=== PATIENT | male | born 1965 | race Caucasian/White ===

== ENCOUNTER 2016-07-26 13:28 | Emergency (ER) | payer OTHER | END 2016-07-26 14:21 | disposition left against medical advice (07) | DX: K08.89 Other specified disorders of teeth and supporting structures (principal); Z53.21 Procedure and treatment not carried out due to patient leaving prior to being seen by health care provider ==

== ENCOUNTER 2016-09-15 11:03 | Emergency (ER) | payer OTHER ==
[2016-09-15 11:10] VITALS: BP 152/100
[2016-09-15] MEDS ORDERED: HYDROcod/ACETAM 5/325 MG TABLET PO STA (12:11)
[2016-09-15] MEDS ORDERED: CLINDAMYCIN 150 MG CAPSULE PO STA (12:11)
--- NOTE | 2016-09-15 12:14 | ED Physician Documentation ---
PD HPI HEENT - Stated complaint Stated Complaint: TOOTH PX - Chief complaint Chief Complaint: Heent - History obtained from History obtained from: Patient - History of Present Illness Timing - onset: Other (Ongoing dental pain from a left mandibular molar over the last couple of days developed palpable abscess on the gum line which stopped on its own this morning. He denies any fevers. He has appointment with the dentist in approximately 10 days.) Review of Systems Constitutional: denies: Fever, Chills, Myalgias Nose: denies: Rhinorrhea / runny nose, Congestion Throat: reports: Dental pain / toothache. denies: Oral lesions / sores Cardiac: denies: Chest pain / pressure, Palpitations PD PAST MEDICAL HISTORY - Past Medical History Cardiovascular: Hypertension Respiratory: None Neuro: None Endocrine/Autoimmune: None GI: None : None HEENT: None Psych: None Musculoskeletal: Gout Derm: None - Past Surgical History Past Surgical History: Yes - Present Medications Home Medications: Ambulatory Orders Medication Instructions Recorded Confirmed Lisinopril 10 mg PO DAILY 05/06/15 09/15/16 Clindamycin [Cleocin] 300 mg PO Q6H 10 Days 09/15/16 HYDROcod/ACETAM 5/325 [Kimberly 5/325] 1 - 2 ea PO Q6H PRN #15 tablet 09/15/16 - Allergies Allergies/Adverse Reactions: Allergies Allergy/AdvReac Type Severity Reaction Status Date / Time No Known Drug Allergies Allergy Verified 10/14/15 03:44 - Social History Does the pt smoke?: Yes Smoking Status: Current every day smoker Does the pt drink ETOH?: Yes ETOH Use: Beer Does the pt have substance abuse?: Yes Substance Use and Type: Marijuana - Immunizations Immunizations are current?: Yes - POLST Patient has POLST: No PD ED PE NORMAL - Vitals Vital signs reviewed: Yes - General General: Alert and oriented X 3, No acute distress - HEENT HEENT: PERRL, EOMI, Other (Large cavities from all of the left mandibular molars with the remnants of an abscess, but no residual swelling or anything to drain. No trismus or sublingual edema. No facial swelling.) - Neuro Neuro: Alert and oriented X 3, Normal speech - Psych Psych: Normal mood, Normal affect Results - Vitals Vitals: Vital Signs - 24 hr 09/15/16 11:07 Temperature 36.0 C L Heart Rate 99 Respiratory 18 Rate Blood Pressure 152/100 H O2 Saturation 99 Oxygen O2 Source Room air PD MEDICAL DECISION MAKING - ED course ED course: The online [employer] prescription monitoring program was queried with regard to this patient. No concerning findings were found. Departure - Departure Disposition: 01 Home, Self Care Clinical Impression: Dental abscess Condition: Good Record reviewed to determine appropriate education?: Yes Instructions: ED Abscess Dental Prescriptions: Clindamycin [Cleocin] 300 mg PO Q6H 10 Days HYDROcod/ACETAM 5/325 [Kimberly 5/325] 1 - 2 ea PO Q6H PRN #15 tablet PRN Reason: Pain Comments: It is very important that you follow up with a dentist. When it comes to dental problems like yours the emergency department can only offer you a short-term solution to your long-term problem. A couple of options for low-cost dental care include: [facility] in [place] call [phone] for an appointment Or [facility] in [place], call [phone] for an appointment Do not drink or drive while on narcotic pain medicine. Note that many narcotic pain relievers also contain tylenol/acetaminophen. Please ensure that your total dose of acetaminophen from all sources does not exceed 3 grams (3000mg) per day. You may constipated on this medication, take a stool softener such as "Colace" twice a day while you are on it. Also recommend a [id number] laxative such as senna or MiraLAX any day that you do not have a bowel movement. If you received narcotic pain medication in the emergency department, do not drive or operate machinery for the next 24 hours. Your blood pressure was elevated today on check in to the emergency department. This does not mean that you have hypertension, it is a common phenomenon to check into the emergency department and have elevated blood pressure. I recommend that you see your primary care physician within the week to have it rechecked when you're feeling better.
[2016-09-15] MEDS ORDERED: HYDROcod/ACETAM 5/325 MG TABLET ONE (12:15)
[2016-09-15] MEDS ORDERED: CLINDAMYCIN 150 MG CAPSULE PO ONE (12:16)
== END 2016-09-15 12:28 | disposition home or self-care (01) ==
LOC: ED 11:03
DX: K04.7 Periapical abscess without sinus (principal); K02.9 Dental caries, unspecified; I10 Essential (primary) hypertension; F17.200 Nicotine dependence, unspecified, uncomplicated
CPT/HCPCS: 99283; A9270